=== PATIENT | female | born 1980 | race African-American/Black ===

== ENCOUNTER 2018-10-08 12:02 | Emergency (ER) | payer OTHER ==
[2018-10-08 12:33] VITALS: TEMP 98.1; BMI 41.0
[2018-10-08] MEDS ORDERED: ACETAMINOPHEN 500 MG TABLET (FP) PO ONE (14:08)
[2018-10-08] MEDS ORDERED: ACETAMINOPHEN 325 MG TABLET (FP) ONE (14:14)
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
[2018-10-08 14:40] LABS: EPI CELLS 9.7 /HPF (0-5/HPF); HYALINE CASTS 7 /lpf (0-8); PH,URINE 5.5 (5.0-8.0); URINE APPEARANCE CLOUDY; URINE BACTERIA 2600.8 /hpf (NEGATIVE); URINE BILIRUBIN NEGATIVE (NEGATIVE); URINE COLOR YELLOW; URINE GLUCOSE (UA) NEGATIVE (NEGATIVE); URINE KETONE NEGATIVE (NEGATIVE); URINE LEUK ESTERASE TRACE (NEGATIVE); URINE NITRITE NEGATIVE (NEGATIVE); URINE PROTEIN TRACE (NEGATIVE); URINE RBC 1 /hpf (0-4); URINE UROBILINOGEN 0.2 mg/dL (0.2-1.0); URINE WBC 9 /hpf (0-5)
[2018-10-08] MEDS ORDERED: DIPHTH,PERTUSS(ACELL),TET 0.5 ML DISP.SYRIN IM ONE ×2 (15:12→18:06)
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
[2018-10-08] MEDS ORDERED: TETRACAINE 0.5% HCL 0.6ML DROPPER.BOTTLE OS ONE (16:21)
[2018-10-08] MEDS ORDERED: TETRACAINE 0.5% OPHTH SOLN 2 ML BOTTLE ONE (16:35)
[2018-10-08] MEDS ORDERED: FLUORESCEIN NA 1 EA STRIP ONE (16:35)
[2018-10-08] MEDS ORDERED: IBUPROFEN 400 MG TABLET (FP) PO ONE ×2 (19:10→19:45)
[2018-10-08 20:33] VITALS: BP 110/66; PULSE 60
== END 2018-10-08 20:33 | disposition home or self-care (01) ==
LOC: JER 12:02
PROC: 3E0234Z Introduction of Serum, Toxoid and Vaccine into Muscle, Percutaneous Approach (ICD-10-PCS; principal; 2018-10-08)
DX: S06.9X9A Unspecified intracranial injury with loss of consciousness of unspecified duration, initial encounter (principal); S05.12XA Contusion of eyeball and orbital tissues, left eye, initial encounter; H11.32 Conjunctival hemorrhage, left eye; Y04.2XXA Assault by strike against or bumped into by another person, initial encounter; Y93.89 Activity, other specified; Y92.038 Other place in apartment as the place of occurrence of the external cause; Y99.8 Other external cause status; Y07.6 Multiple perpetrators of maltreatment and neglect
CPT/HCPCS: 70450-TC; 70486-TC; 71046-TC-FY; 72125-TC; 72128-TC; 81003; 84703; 90471; 90715; 99282-25